=== PATIENT | male | born 2000 ===

== ENCOUNTER 2021-05-16 05:01 | Emergency (ER) | payer BC ==
[~2021-05-16] VITALS: Ht 188 cm; Wt 127.3 kg
[2021-05-16 05:09] VITALS: TEMP 98.8
[2021-05-16 05:39] LABS: BASO # 0.1 (0.0-0.2); BASO % 0.7 % (0.0-2.0); EOS # 0.2 (0.0-0.7); EOS % 2.8 % (0-4.0); GRAN # 3.9 (1.4-6.5); GRAN % 48.3 % (42.2-75.2); HEMATOCRIT 48.6 % (42.0-52.0); HEMOGLOBIN 16.6 g/dl (13.5-18.0); LYMPH # 3.1 (1.2-3.4); LYMPH % 38.5 % (20.0-51.0); MEAN CELL VOLUME 88 fl (80.0-100.0); MEAN CORPUSCULAR HEMOGLOBIN 30 pg (27.0-31.0); MEAN CORPUSCULAR HGB CONC 34 g/dl (33.0-37.0); MEAN PLATELET VOLUME 10.1 fl (7.4-10.4); MONO # 0.7 (0.1-0.6); PLATELET COUNT 254 K/mm3 (130-400)
[2021-05-16 06:42] LABS: ALBUMIN 4.5 gm/dL (3.5-5.0); BILIRUBIN,TOTAL 0.3 mg/dL (0.0-1.0); CREATININE, serum 0.91 (0.66-1.25); POTASSIUM 4.6 mmol/L (3.4-5.0); TOTAL PROTEIN 7.4 gm/dL (6.4-8.2)
[2021-05-16 07:21] VITALS: BP 139/75; PULSE 86
== END 2021-05-16 07:21 | disposition home or self-care (01) ==
LOC: COL.ER 05:01
PROVIDERS: Personal Emergency Response Attendant
DX: F41.1 Generalized anxiety disorder (principal); R00.2 Palpitations
CPT/HCPCS: J7030